=== PATIENT | male | born 1955 | race Caucasian/White ===

== ENCOUNTER 2021-12-22 02:29 | Day surgery (SDC) | payer MEDICARE, SELFPAY ==
[2021-12-19 09:39] VITALS: BMI 28.2
--- NOTE | 2021-12-19 09:52 | PC.NURSE ---
Report to the Outpatient Waiting Room, entrance under the green pavilion located off [facility], at time _10:00AM on date __12/22/21 . OR Time: ___12:00PM . - You and your visitor will be asked a series of questions to screen for COVID 19 for your protection. - Only one visitor is allowed at this time. - The patient visitor is requested to leave or wait in car when not with patient. - A mask is required within the hospital. Patients may have clear liquids (water, carbonated beverages, clear teas, apple juice) until 3 hours prior to surgery with a maximum of 20 ounces. - No food from midnight until time of surgery - Infants may have breast milk until 4 hours before surgery, infant formula 6 hours prior to surgery. - Children will be allowed to drink immediately following surgery. If applicable, please bring a bottle or sippy cup to assist with drinking. Juice, water, soda, and popsicles are readily available. For infants on formula, please bring formula the day of surgery. Pacifiers are allowed. Take the following medications with a SIP of water the morning of surgery: SERTRALINE Medications to discontinue per physician NONE Date to take last dose Please no make-up, nail frisian, hairspray, perfume, deodorant, or body powder the day of surgery. No jewelry (including any body piercings) or valuables the day of surgery, leave them at home. Please take a shower or bath the night before, or the morning of, surgery with an antibacterial soap. Wear comfortable, loose fitting clothing. Children are encouraged to wear pajamas. - Jewelry must be removed prior to entering the operating room. Rings and piercings that are not removed may be cut off. - The hospital will not accept responsibility for valuables. - Please leave all valuables, including medications, at home the day of surgery. If you are going home after surgery, a licensed wedding transportation driver must drive you home. - NO public transportation without another adult. - We recommend that an adult stay with you for 24 hours following discharge. - We also recommend that you do not drive, make important decision, drink alcoholic beverages, or take any drugs that were not prescribed by your health care provider for at least 24 hours after your discharge time. For Pediatric surgeries, we recommend two adults accompany the child home (only one inside the building at this time). Follow any additional instructions given to you from your surgeon. If you or anyone in your household have experienced Covid symptoms in the past week, please notify your surgeon or the nurse liaison at the phone number below for possible testing. Telephone instructions given to ___PATIENT and asked if any additional questions and then verbalized understanding. Patient advised to call surgeon office or pre surgery nurse liaison [phone] if any additional questions.
--- NOTE | 2021-12-21 08:21 | WPDANESEPPF ---
Anes - Initial Pre Proc Eval Procedure: Operation Date: 12/22/21 12:00 Proposed Procedures p Removal of Foreign Body Left Hand - Gaurav Greenberg MD <Arie Lancaster MD - Last Filed: 12/23/21 16:48> Date/Time: 12/21/21 08:21 <Arie Lancaster MD - Last Filed: 12/23/21 16:48> Surgeon: Gaurav Greenberg MD <Arie Lancaster MD - Last Filed: 12/23/21 16:48> Pre Op Diagnosis: foreign body left hand <Arie Lancaster MD - Last Filed: 12/23/21 16:48> Patient Data Age: 66 Gender: M Height: 1.65 m Weight: 77 kg <Arie Lancaster MD - Last Filed: 12/23/21 16:48> Allergies Allergy/AdvReac Type Severity Reaction Status Date / Time No Known Allergies Allergy Mild Verified 12/22/21 10:54 <Arie Lancaster MD - Last Filed: 12/23/21 16:48> Home Medications Medication Instructions Recorded Confirmed Type sertraline 100 mg tablet 100 mg PO DAILY 12/18/21 12/22/21 History ketorolac 10 mg PO Q6H PRN #10 tablet 12/22/21 Rx <Arie Lancaster MD - Last Filed: 12/23/21 16:48> Patient hx anesthesia problems: none <Marv Villagomez DO - Last Filed: 12/22/21 10:57> Family hx anesthesia problems: none <Marv Villagomez DO - Last Filed: 12/22/21 10:57> Results Review: All pre-operative results and documents have been reviewed as part of the pre-operative evaluation. <Arie Lancaster MD - Last Filed: 12/23/21 16:48> [facility] Past Medical History Medical History: Medical History (Updated 12/21/21 @ 08:22 by Arie Lancaster MD) Foreign body of left hand No chronic problems Overweight (BMI 25.0-29.9) <Arie Lancaster MD - Last Filed: 12/23/21 16:48> Surgical History Surgical History: Surgical History No history of previous surgery <Arie Lancaster MD - Last Filed: 12/23/21 16:48> Family History Family History: Family History Other Depression Diabetes mellitus Family history of cancer Heart disease <Arie Lancaster MD - Last Filed: 12/23/21 16:48> Social History Social History: Social History Smoking packs per day: 0.5 Smoking cigarettes per day: 10.0 Years smoked: 5 Smoking pack-years: 2.50 Smoking status: Former smoker Tobacco type: cigarettes Smoking end date: 02/20/89 Alcohol intake: never Alcohol use details: HEAVY BEER DRINKER IN PAST, QUIT 22 YRS AGO Substance use: never Substance use type: marijuana Living arrangements: with family Additional living arrangements comments: Gender identity (if verbalized by the patient): Male Spiritual care concerns: No <Arie Lancaster MD - Last Filed: 12/23/21 16:48> Anes - Eval Final PreProcedure Day of Procedure 12/21/21 08:21 <Arie Lancaster MD - Last Filed: 12/23/21 16:48> Patient weight: overweight <Arie Lancaster MD - Last Filed: 12/23/21 16:48> Heart: regular rate and rhythm <Arie Lancaster MD - Last Filed: 12/23/21 16:48> Lungs: clear to auscultation and normal air movement <Arie Lancaster MD - Last Filed: 12/23/21 16:48> Airway: Mallampati scale class II <Arie Lancaster MD - Last Filed: 12/23/21 16:48> Neurological: alert and oriented <Arie Lancaster MD - Last Filed: 12/23/21 16:48> Last oral intake: >/= 8 hours <Arie Lancaster MD - Last Filed: 12/23/21 16:48> ASA classification: II <Arie Lancaster MD - Last Filed: 12/23/21 16:48> Emergent: no <Arie Lancaster MD - Last Filed: 12/23/21 16:48> Anesthetic plan: proceed <Arie Lancaster MD - Last Filed: 12/23/21 16:48> Anesthesia type and monitoring: general GIVS and LMA <Arie Lancaster MD - Last Filed: 12/23/21 16:48> Results Review: All pre-operative results and documents have b
[2021-12-22 10:29] VITALS: BP 124/75; PULSE 55; RESP 18; TEMP 36; O2SAT 99
[2021-12-22] MEDS: LACTATED RINGERS 1,000 ML 30 ML IV CONT (10:48)
[2021-12-22] MEDS: KETOROLAC 15 MG/ML VIAL (*BKC) IV PUSH (10:49)
--- NOTE | 2021-12-22 11:01 | SUR.PREOP ---
NO HAIR REMOVAL NEEDED PER DR. REN.
--- NOTE | 2021-12-22 11:19 | WPDHPUPDATE1 ---
History and Physical Update Update Date/Time: 12/22/21 11:19 History and Physical has been reviewed, including an updated exam of the patient. There are NO changes in the patient's condition. Risks, benefits, and alternatives have been discussed and questions answered. Patient agrees to proceed with procedure.
--- NOTE | 2021-12-22 11:26 | WPDHPUPDATE1 ---
History and Physical Update Update Date/Time: 12/22/21 11:26 History and Physical has been reviewed, including an updated exam of the patient. There are NO changes in the patient's condition. Risks, benefits, and alternatives have been discussed and questions answered. Patient agrees to proceed with procedure.
[2021-12-22] MEDS: ceFAZolin 2 GM/D5W 50 ML 2 GM/50 ML BAG IVPB (11:39)
[2021-12-22] MEDS: BUPIVACAINE HCL 0.25% PF 30 ML VIAL INFILTRATE (12:07)
--- NOTE | 2021-12-22 12:20 | W.PM.PROC2 ---
Procedure Note - Detailed Date of Procedure 12/22/21 Pre-op Diagnosis foreign body left hand Post-op Diagnosis Same Procedure Performed Removal foreign body left hand Surgeon Gaurav Greenberg MD Curriculum Director Rajat Ramirez Anesthesia MAC and Local Description of Procedure The patient was identified and proper site identified. He was taken back to the operating room and transferred to the OR table placing him supine taking care to pad his torso and extremities. A nonsterile tourniquet was placed high in the left arm. He was administered IV sedation. Left upper extremity was prepped and draped in usual sterile fashion. Shows issues of cord% plain Marcaine were injected around the callused area adjacent to the little finger MCP joint ulnar aspect of the left hand. Extremity was exsanguinated and the tourniquet was inflated to 250 millimeter mercury remaining up for about 10 minutes. The callus area was ellipsed out and within the removed tissue a glass shard corresponding to what was seen on x-ray was noted the wound was irrigated with sterile saline. The depths of the wound were examined and no other foreign material was identified. Skin edges reapproximated with 4-0 nylon suture and a sterile dressing was applied. He tolerated the procedure well. He was transferred back to a cart taken recovery area in stable condition. There were no known intraoperative complications. Estimated blood loss negligible. He received perioperative antibiotics. Estimated Blood Loss 0 Tourniquet Time 10 Drains No Packing No Pathology None sent Complications No immediate complications Condition Stable Disposition PACU
[2021-12-22 12:29] VITALS: BP 88/48; PULSE 50; RESP 13; O2SAT 96
[2021-12-22 12:59] VITALS: BP 104/64; PULSE 46; RESP 14
[2021-12-22 13:19] VITALS: BP 104/65; PULSE 45
== END 2021-12-22 13:22 | disposition home or self-care (01) ==
PROVIDERS: PCP Internal Medicine; Visit Provider Orthopaedic Surgery
PROC: (CPT 20694; principal; 2021-12-22 12:00)
DX: M79.5 Residual foreign body in soft tissue (principal); F12.90 Cannabis use, unspecified, uncomplicated
CPT/HCPCS: 10120; J0690; J1885; J2250; J2704; J3010; J7120